=== PATIENT | male | born 1960 | race African-American/Black ===

== ENCOUNTER 2018-09-19 18:49 | Inpatient (IN) | payer OTHER ==
[~2018-09-19] VITALS: Ht 177.8 cm; Wt 113.4 kg
[2018-09-19] MEDS: NACL 0.9% 1,000 ML IV SCH
[2018-09-19 18:56] VITALS: BP 143/79
--- NOTE | 2018-09-19 19:10 | NUR ---
ASSUMED CARE OF PT AT THIS TIME. PT AWAITS MD ESPINAL. KERI. VSS. WILL CONTINUE TO MONITOR.
--- NOTE | 2018-09-19 19:33 | NUR ---
Dr. Nolan evaluating patient at bedside.
[2018-09-19] MEDS ORDERED: NACL 0.9% 1,000 ML IV ONE ×2 (19:34→21:50)
[2018-09-19] MEDS ORDERED: KETOROLAC 30 MG/ML VIAL IVP ONE (19:35)
--- NOTE | 2018-09-19 19:48 | NUR ---
X-Ray at bedside.
[2018-09-19] MEDS ORDERED: ALBUTEROL SULFATE/IPRATROPIU 3 ML SOL IH ONE (20:05)
[2018-09-19 20:08] LABS: BASOPHILS # (AUTO) 0.1 K/uL (0.00-0.22); BASOPHILS % (AUTO) 0.9 % (0.0-2.0); EOSINOPHILS # (AUTO) 0.2 K/uL (0-0.4); EOSINOPHILS % (AUTO) 2.4 % (0.0-4.0); HEMATOCRIT 43.4 % (36-52); HEMOGLOBIN 14.5 g/dL (12.0-18.0); LYMPHOCYTES # (AUTO) 2.2 K/uL (2.0-11.5); LYMPHOCYTES % (AUTO) 24.3 % (20.5-51.1); MEAN CORPUSCULAR HEMOGLOBIN 27 pg (27-31); MEAN CORPUSCULAR HGB CONC 33 g/dL (33-37); MONOCYTES # (AUTO) 0.6 K/uL (0.8-1.0); MONOCYTES % (AUTO) 6.5 % (1.7-9.3); NEUTROPHILS # (AUTO) 6.1 K/uL (1.8-7.7); NEUTROPHILS % (AUTO) 65.9 % (42.2-75.2); PLATELET COUNT (AUTO) 333 K/uL (140-450); RED BLOOD CELL COUNT(AUTO) 5.43 MIL/uL (4.20-6.10); RED CELL DISTRIBUTION WIDTH 13.7 % (11.6-13.7); WHITE BLOOD COUNT (AUTO) 9.3 K/uL (4.8-10.8)
--- NOTE | 2018-09-19 20:09 | NUR ---
Respiratory Therapist at bedside for respiratory intervention.
[2018-09-19 20:30] LABS: ANION GAP 10.4 (8-16); CARBON DIOXIDE 31.4 mmol/L (21-32); CREATININE 1.5 mg/dL (0.7-1.3); POTASSIUM 4.8 mmol/L (3.5-5.1); PROTHROMBIN TIME 9.3 secs (10.8-13.4)
[2018-09-19 20:46] LABS: TOTAL BILIRUBIN 0.3 mg/dL (0.0-1.0)
[2018-09-19 20:47] LABS: ALBUMIN 3.6 g/dL (3.4-5.0)
[2018-09-19 21:56] LABS: APPEARANCE,URINE CLEAR (CLEAR); BILIRUBIN,URINE 1+ (NEGATIVE); BLOOD, URINE NEGATIVE (NEGATIVE); COLOR,URINE YELLOW (YELLOW); LEUKOCYTE ESTERASE ,URINE 1+ (NEGATIVE); NITRITE, URINE NEGATIVE (NEGATIVE); UGLUCOSE NEGATIVE (NEGATIVE)
[2018-09-19 21:58] LABS: RBC,URINE 0-5 (RARE) /HPF (0-5); WBC,URINE 60-80 /HPF (0-5)
--- NOTE | 2018-09-19 22:33 | NUR ---
Dr. Nolan re-evaluating patient at bedside.
[2018-09-19] MEDS ORDERED: cefTRIAXone 1,000 MG VIAL ONE (23:27)
[2018-09-19] MEDS ORDERED: ACETAMINOPHEN 325 MG TAB PO PRN (23:30)
[2018-09-19] MEDS ORDERED: INSULIN LISPRO SLIDING SCALE 100 UNITS/ML VIAL SUBQ PRN (23:30)
[2018-09-19] MEDS ORDERED: DEXTROSE 50% 50 ML SYR IVP PRN (23:30)
--- NOTE | 2018-09-19 23:30 | NUR ---
PT SLEEPING. PT AWAITS INPATIENT ADMISSION. NAD. VSS. FAMILY AT BEDSIDE. WILL CONTINUE TO MONITOR.
[2018-09-19 23:35] VITALS: BP 144/90
--- NOTE | 2018-09-19 23:35 | NUR ---
REPORT RECEIVED FROM ED NURSE AT BEDSIDE. PT IN STABLE CONDITION. AAOX4. INTRODUCED SELF TO PT. BOARD UPDATED. NO COMPLAINTS OF PAIN. NO SOB. AFEBRILE. IV SITE L AC 20G RUNNING NS@75ML/HR PATENT AND INTACT. SKIN WARM, DRY, AND INTACT WITH NO OPEN WOUNDS. BED LOCKED IN LOW POSITION. CALL BURGER WITHIN REACH. SAFETY PRECAUTIONS IN PLACE. ALL NEEDS MET AT THIS TIME.
--- NOTE | 2018-09-19 23:50 | NUR ---
Patient will be admitted to care of . Admitted to MED/SURG. Will go to room 105A. Belongings list completed. Report to OSEAS GALLAGHER.
[2018-09-20] VITALS: BP 140/85
--- NOTE | 2018-09-20 | NUR ---
DEV BOYD AND RUNNING. PT TOLERATING WELL.
--- NOTE | 2018-09-20 00:30 | NUR ---
ROCEPHIN INFUSION COMPLETE.
[2018-09-20] MEDS ORDERED: cefTRIAXone 1,000 MG VIAL ONE (00:46)
--- NOTE | 2018-09-20 01:45 | NUR ---
PT SLEEPING COMFORTABLY LEFT LATERAL BUT AROUSEABLE. NO S/S OF DISTRESS NOTED. ALL NEEDS MET AT THIS TIME. WILL CONTINUE TO MONITOR.
--- NOTE | 2018-09-20 03:45 | NUR ---
PT SLEEPING COMFORTABLY IN BED. NO S/S OF DISTRESS NOTED. WILL CONTINUE TO MONITOR.
[2018-09-20] MEDS ORDERED: INFLUENZA VIRUS VACCINE QUAD 0.5 ML SYR IMVAC PRN (03:50)
[2018-09-20] MEDS ORDERED: PNEUMOCOCCAL VACCINE 23 MCG/0.5 ML VIAL IMVAC PRN (03:50)
[2018-09-20] MEDS: BLOOD GLUCOSE MONITORING 1 DEV DEV FS SCH ×4 (05:38→20:44)
--- NOTE | 2018-09-20 05:38 | NUR ---
BS 127. NO INSULIN COVERAGE NEEDED.
--- NOTE | 2018-09-20 07:23 | NUR ---
REPORT GIVEN TO AM NURSE AT BEDSIDE. PT IN STABLE CONDITION.
--- NOTE | 2018-09-20 07:25 | NUR ---
RECEIVED REPORT FROM [employer]ULT MECHANIC NURSE AT BEDSIDE. PT SLEEPING, ROUSED BY NAME, OX4. DENIES ANY PAIN AT THIS TIME. NO S/S OF SOB ON RM AIR. IV SITE L AC 20G RUNNING NS 75ML/HR, PATENT AND INTACT. SKIN WARM, DRY, AND INTACT. OLD SCAR FROM EXPLORATORY SX ON ABD. BED LOCKED IN LOWEST POSITION. CALL LIGHT WITHIN REACH. SAFETY PRECAUTIONS IN PLACE. WILL CONTINUE TO MONITOR.
[2018-09-20 07:41] LABS: BASOPHILS % (AUTO) 0.4 % (0.0-2.0); EOSINOPHILS # (AUTO) 0.2 K/uL (0-0.4); EOSINOPHILS % (AUTO) 2.4 % (0.0-4.0); HEMATOCRIT 42.8 % (36-52); HEMOGLOBIN 14.1 g/dL (12.0-18.0); LYMPHOCYTES # (AUTO) 2.3 K/uL (2.0-11.5); MEAN CORPUSCULAR HEMOGLOBIN 27 pg (27-31); MEAN CORPUSCULAR HGB CONC 33 g/dL (33-37); MEAN CORPUSCULAR VOLUME 80.6 fL (80-94); MONOCYTES # (AUTO) 0.6 K/uL (0.8-1.0); MONOCYTES % (AUTO) 6.8 % (1.7-9.3); NEUTROPHILS # (AUTO) 5.6 K/uL (1.8-7.7); NEUTROPHILS % (AUTO) 64.4 % (42.2-75.2); PLATELET COUNT (AUTO) 322 K/uL (140-450); RED BLOOD CELL COUNT(AUTO) 5.31 MIL/uL (4.20-6.10); RED CELL DISTRIBUTION WIDTH 14.1 % (11.6-13.7); WHITE BLOOD COUNT (AUTO) 8.8 K/uL (4.8-10.8)
[2018-09-20 07:43] LABS: ANION GAP 12.9 (8-16); CARBON DIOXIDE 26.7 mmol/L (21-32); CREATININE 1.3 mg/dL (0.7-1.3); POTASSIUM 4.6 mmol/L (3.5-5.1)
[2018-09-20 08:00] VITALS: BP 151/88
--- NOTE | 2018-09-20 08:23 | NUR ---
PATIENT HAS BEEN SCREENED AND CATEGORIZED HIGH NUTRITION RISK. PATIENT WILL BE SEEN WITHIN 1-2 DAYS OF ADMISSION. 09/20/18-09/21/[address]
[2018-09-20] MEDS: ENOXAPARIN 40 MG/0.4 ML SYR SUBQ SCH (09:36)
--- NOTE | 2018-09-20 10:19 | NUR ---
CM NOTE PER DAMIAN OF [facility]# [phone], PATIENT IS SCHEDULED FOR OUTPATIENT FOLLOW UP APPOINTMENT WITH DR. ARSEN GUPTA ON SEPTEMBER 26, 2018 2:45 PM AT THE CLINIC IN [address] [place] [address]. I GAVE PATIENT COPY OF HIS OUTPATIENT FOLLOW UP SCHEDULE
--- NOTE | 2018-09-20 13:00 | NUR ---
FIRST NS INFUSION BAG COMPLETE.
[2018-09-20] MEDS: NACL 0.9% 1,000 ML IV SCH (13:17)
--- NOTE | 2018-09-20 13:49 | NUR ---
09/20/18 RD INITIAL ASSESSMENT COMPLETED PLEASE REFER TO NUTRITION ASSESSMENT UNDER CARE ACTIVITY FOR ESTIMATED NUTRITIONAL NEEDS. 1. CONTINUE CCHO 60 GM DIET TOLERATED 2. RD PROVIDED NUTRITION EDUCATION FOR DIABETES 3. RD TO FOLLOW-UP 5-7 DAYS, LOW RISK BERNARDO [address]
--- NOTE | 2018-09-20 14:00 | NUR ---
PT WALKED AROUND THE UNIT, GAIT STEADY. NO S/S OF ACUTE DISTRESS.
--- NOTE | 2018-09-20 15:35 | NUR ---
TOOK PT TO SHOWER, IV SITE IS COVERED WITH PLASTIC BAG.
[2018-09-20 16:00] VITALS: BP 156/78
--- NOTE | 2018-09-20 16:10 | NUR ---
ABM WITH PT BACK TO HIS ROOM, NO S/S OF DISTRESS NOTED. IV CATH IS INTACT AND PATENT.
--- NOTE | 2018-09-20 16:30 | NUR ---
CALLED PT'S PREFERRED PHARMACY [facility] ON [facility]. OBTAINED MEDICATIONS LIST FOR PT'S HOME MEDS.
[2018-09-20] MEDS ORDERED: CLOP75TA26 PO (16:39)
[2018-09-20] MEDS ORDERED: TAMS0.4C96 PO (16:39)
[2018-09-20] MEDS ORDERED: ORE25 PO (16:39)
[2018-09-20] MEDS ORDERED: PIOG45TA10 PO (16:39)
[2018-09-20] MEDS ORDERED: ASPI81CT89 PO (16:39)
[2018-09-20] MEDS ORDERED: BUPR150T12 PO (16:39)
[2018-09-20] MEDS ORDERED: LOSA50TA66 PO (16:39)
[2018-09-20] MEDS ORDERED: LYR25 PO (16:39)
[2018-09-20] MEDS ORDERED: HYDR-1098 PO (16:39)
[2018-09-20] MEDS ORDERED: GLIP5TAB4 PO (16:39)
[2018-09-20] MEDS ORDERED: METF-350 PO (16:39)
[2018-09-20] MEDS ORDERED: CANA100T PO (16:39)
[2018-09-20] MEDS ORDERED: LIP80 PO (16:39)
--- NOTE | 2018-09-20 17:05 | NUR ---
DR MAYORGA SPOKE WITH PT AND REVIEWED HIS HOME MEDS.
--- NOTE | 2018-09-20 19:30 | NUR ---
REPORT GIVEN TO LINEN AIDE RN, JASON AT BEDSIDE. PT IN STABLE CONDITION.
[2018-09-20 20:39] VITALS: BP 172/89
--- NOTE | 2018-09-20 20:40 | NUR ---
SEEN PT SLEEPING SOUNDLY BUT EASILY AROUSABLE. INITIAL ASSESSMENT DONE. VITAL SIGNS CHECKED. PT'S KO=330/89. WILL MEDICATE FOR ELEVATED BP ORDERED. NO DISCOMFORT OBSERVED. BLOOD SUGAR CHECKED: 149. NO COVERAGE NEEDED. MEDICATIONS GIVEN ORDERED W/ TEACHINGS. SAFETY ENSURED. PT DENIES ANY NEED AT THIS TIME.
[2018-09-20] MEDS: LOSARTAN 50 MG TAB PO SCH (20:41)
[2018-09-20] MEDS: buPROPion 150 MG TABER PO SCH (20:42)
[2018-09-20 21:21] LABS: BARBITURATE, URINE NEG. ng/ml (NEG <=200); BENZODIAZEPINE, URINE NEG. ng/mL (NEG <=200); CANNABINOID, URINE NEG. ng/mL (NEG <=50); COCAINE, URINE NEG. ng/mL (NEG <=300); OPIATE, URINE NEG. ng/mL (NEG <=2000); PHENCYCLIDINE SCREEN,URINE NEG. ng/mL (NEG <=25)
[2018-09-21] VITALS: BP 151/65
--- NOTE | 2018-09-21 00:05 | NUR ---
SEEN PT SLEEPING SOUNDLY. VITAL SIGNS CHECKED. PT GOT UP AND USED HIS URINAL. PT DENIES ANY NEEDS.
[2018-09-21 04:20] VITALS: BP 164/87
--- NOTE | 2018-09-21 04:40 | NUR ---
SEEN PT SLEEPING SOUNDLY. VITAL SIGNS CHECKED. PT DENIES ANY DISCOMFORT. IVF BAG CHANGED. URINAL EMPTIED
[2018-09-21] MEDS: NACL 0.9% 1,000 ML IV SCH (04:58)
[2018-09-21] MEDS: BLOOD GLUCOSE MONITORING 1 DEV DEV FS SCH (06:53)
--- NOTE | 2018-09-21 06:55 | NUR ---
SEEN PT AWAKE SITTING ON THE EDGE OF THE BED. BLOOD SUGAR CHECKED:133. NO COVERAGE NEEDED. PO MEDS GIVEN W/ TEACHINGS.
--- NOTE | 2018-09-21 07:10 | NUR ---
RECEIVED REPORT FROM HISTORICAL RECORDS ADMINISTRATOR NURSE AT BEDSIDE. PT SLEEPING, ROUSED BY NAME, OX4. DENIES ANY PAIN AT THIS TIME. ASKING FOR BREAKFAST, TOLD PT IT WILL COME AROUND 8. PT VERBALIZED UNDERSTANDING. NO S/S OF SOB ON RM AIR. IV SITE L AC 20G RUNNING NS 75ML/HR, PATENT AND INTACT. SKIN WARM, DRY, AND INTACT. BED LOCKED IN LOWEST POSITION. CALL LIGHT WITHIN REACH. SAFETY PRECAUTIONS IN PLACE. WILL CONTINUE TO MONITOR.
[2018-09-21] MEDS ORDERED: glipiZIDE 5 MG TAB PO SCH (07:30)
[2018-09-21] MEDS ORDERED: metFORMIN 850 MG TAB PO SCH (08:00)
[2018-09-21] MEDS: LOSARTAN 50 MG TAB PO SCH (08:26)
[2018-09-21] MEDS: buPROPion 150 MG TABER PO SCH (08:28)
[2018-09-21] MEDS: ENOXAPARIN 40 MG/0.4 ML SYR SUBQ SCH (08:33)
[2018-09-21] MEDS ORDERED: HYDROCHLOROTHIAZIDE 25 MG TAB PO SCH (09:00)
[2018-09-21] MEDS ORDERED: ASPIRIN 81 MG TAB.CHEW PO SCH (09:00)
[2018-09-21] MEDS ORDERED: hydrALAZINE 25 MG TAB PO SCH (09:00)
[2018-09-21] MEDS ORDERED: CANAGLIFLOZIN 100 MG PO SCH (09:00)
[2018-09-21] MEDS ORDERED: NON-FORMULARY ITEM (Hydralazine HCl (Hydralazine Hcl) 25 MG) PO SCH (09:00)
[2018-09-21] MEDS ORDERED: PREGABALIN 25 MG CAP PO SCH (09:00)
[2018-09-21] MEDS ORDERED: CLOPIDOGREL 75 MG TAB PO SCH (09:00)
[2018-09-21] MEDS ORDERED: PIOGLITAZONE HCL 45 MG PO SCH (09:00)
[2018-09-21] MEDS ORDERED: TAMSULOSIN 0.4 MG CAP PO SCH (09:00)
[2018-09-21] MEDS ORDERED: PIOGLITAZONE 15 MG TAB PO SCH (09:00)
[2018-09-21] MEDS ORDERED: ATORVASTATIN 80 MG TAB PO SCH (09:00)
--- NOTE | 2018-09-21 09:30 | NUR ---
DR MAYORGA HAS SEEN THE PT. PT STATED ALL HIS HOME MEDS WERE LOST OR GOT STOLEN. PT ALSO WANTS HYDROCORTISONE CREAM FOR HIS FACE. DR MAYORGA WROTE THE PRESCRIPTION FOR PT.
[2018-09-21] MEDS ORDERED: [UNRECOGNIZED DRUG - CODE] TP (09:56)
--- NOTE | 2018-09-21 10:00 | NUR ---
PT ALREADY SPOKE WITH BOBTAIL DRIVER YESTERDAY, [employer] PACKET WAS PROVIDED.
--- NOTE | 2018-09-21 10:10 | NUR ---
HYDROCORTISONE CREAM 0.2% PRN TP FACE DAILY FOR 14 DAYS ON THE RX, BUT [employer] ONLY HAS 0.5% AVAILABLE.
--- NOTE | 2018-09-21 10:25 | NUR ---
PT DISCHARGED PER MD ORDER. PNA VAC GIVEN AT NC. PT TOLERATED WELL. PT DENIES SOB, PAIN, AND DIZZINESS. NO S/S OF ACUTE DISTRESS NOTED ON ROOM AIR. DISCHARGE INSTRUCTIONS AND MED TEACHING GIVEN. RX GIVEN. MADE PT AWARE OF HIS SCHEDULE APPT WITH DR ARSEN GUPTA, ON 09/26/18. PT VERBALIZED UNDERSTANDING. WALKED WITH PT TO LOBBY. PT LEFT WITH ALL HIS BELONGINGS.
== END 2018-09-21 10:25 | disposition home or self-care (01) | DRG 463 ==
LOC: MED 18:49 → MTU 23:34
PROVIDERS: ADMIT Hospitalist; ATTEND Hospitalist
PROC: 3E0234Z Introduction of Serum, Toxoid and Vaccine into Muscle, Percutaneous Approach (ICD-10-PCS; principal; 2018-09-21)
DX: N39.0 Urinary tract infection, site not specified (principal); N17.9 Acute kidney failure, unspecified; E11.22 Type 2 diabetes mellitus with diabetic chronic kidney disease; N18.3 Chronic kidney disease, stage 3 (moderate); I12.9 Hypertensive chronic kidney disease with stage 1 through stage 4 chronic kidney disease, or unspecified chronic kidney disease; F17.210 Nicotine dependence, cigarettes, uncomplicated; B96.89 Other specified bacterial agents as the cause of diseases classified elsewhere; R62.7 Adult failure to thrive; Z68.35 Body mass index [BMI] 35.0-35.9, adult; Z59.0 Homelessness; Z23 Encounter for immunization; Z91.14 Patient's other noncompliance with medication regimen
CPT/HCPCS: 36415; 71045; 76770; 80048; 80053; 80305; 81001; 82948; 83605; 83690; 83880; 84484; 85025; 85610; 87040; 87081; 87086; 87804; 90732; 93005; 94640; 96361; 96365; 96375; 99285; J0696; J1650; J1815; J1885; J7030; J7060; J7620; Q0092